=== PATIENT | female | born 2000 | race Caucasian/White ===

== ENCOUNTER 2020-06-15 05:02 | Emergency (ER) | payer OTHER ==
[~2020-06-15] VITALS: Ht 165.1 cm; Wt 65.8 kg
[2020-06-15 05:04] VITALS: Ht 165.1 cm; Wt 65.8 kg
[2020-06-15 05:41] VITALS: BP 117/69
== END 2020-06-15 05:39 | disposition other institution (70) ==
LOC: ED 05:02
DX: Z02.89 Encounter for other administrative examinations (principal)